=== PATIENT | male | born 1965 | race Two or more races ===

== ENCOUNTER 2022-06-20 18:47 | Inpatient (IN) | payer OTHER ==
[~2022-06-20] VITALS: Ht 167.6 cm; Wt 72.6 kg
[2022-06-20] MEDS ORDERED: XANAX XR0.5 MG PO (20:06)
[2022-06-20] MEDS ORDERED: CLONAZEPAM1 MG PO (20:07)
[2022-06-20] MEDS ORDERED: WELLBUTRIN SR150 MG PO (20:07)
[2022-06-20] MEDS ORDERED: VITAMIN C500 MG PO (20:07)
[2022-06-20] MEDS ORDERED: ZEGERID 40 MG1 EACH PO (20:08)
[2022-06-20] MEDS ORDERED: HORIZANT300 MG PO (20:08)
[2022-06-20] MEDS ORDERED: REGLAN5 MG/5 ML PO (20:08)
[2022-06-20] MEDS ORDERED: VIAGRA100 MG PO (20:08)
[2022-06-20] MEDS ORDERED: TRAMADOL HCL E100 M1 PO (20:09)
[2022-06-21] MEDS ORDERED: OMEPRAZOLE40 MG (14:54)
[2022-06-21] MEDS ORDERED: TRIAMTERENE-HC1 EAC1 (14:54)
== END 2022-06-28 13:02 | disposition home or self-care (01) | DRG 637 ==
LOC: ER 18:47 → MEDI 21:58 → ICU-2 21:58 → ICU 21:58 → MEDI 06-22 14:33 → MEDJ 06-27 14:14
PROVIDERS: ADMIT Internal Medicine; ATTEND Internal Medicine
PROC: B246ZZZ Ultrasonography of Right and Left Heart (ICD-10-PCS; principal; 2022-06-20)
PROC: BW24ZZZ Computerized Tomography (CT Scan) of Chest and Abdomen (ICD-10-PCS; 2022-06-20)
PROC: 3E0F7GC Introduction of Other Therapeutic Substance into Respiratory Tract, Via Natural or Artificial Opening (ICD-10-PCS; 2022-06-20)
PROC: 4A12X4Z Monitoring of Cardiac Electrical Activity, External Approach (ICD-10-PCS; 2022-06-20)
PROC: 5A0955A Assistance with Respiratory Ventilation, Greater than 96 Consecutive Hours, High Flow/Velocity Cannula (ICD-10-PCS; 2022-06-20)
DX: E11.00 Type 2 diabetes mellitus with hyperosmolarity without nonketotic hyperglycemic-hyperosmolar coma (NKHHC) (principal); A41.89 Other specified sepsis; J15.0 Pneumonia due to Klebsiella pneumoniae; M62.82 Rhabdomyolysis; N17.8 Other acute kidney failure; E87.0 Hyperosmolality and hypernatremia; E86.0 Dehydration; R00.0 Tachycardia, unspecified; E83.42 Hypomagnesemia; E87.6 Hypokalemia; I12.9 Hypertensive chronic kidney disease with stage 1 through stage 4 chronic kidney disease, or unspecified chronic kidney disease; N18.9 Chronic kidney disease, unspecified; Z20.822 Contact with and (suspected) exposure to COVID-19